=== PATIENT | female | born 2005 | race Caucasian/White ===

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

== ENCOUNTER 2025-09-05 12:24 | Outpatient (CLI) | payer OTHER, SELFPAY ==
[2025-09-05 16:28] LABS: Coronavirus 19, PCR Not Detected (NotDetected); Influenza A, PCR Not Detected (NotDetected); Influenza B, PCR Not Detected (NotDetected)
--- OUTSIDE RECORDS SUMMARY | 2025-09-09 12:29 | XMS_ITS | Patient Health Record ---
Author Organization [facility] [place] [facility] Address [address] [address] [place] [address] Support Name Relationship Address Phone Anay Jacobs Guarantor Unknown [phone] Reason For Referral No Information Plan Of Treatment No Information Medical (General) History Surgical History Surgery Date(Month/Year) Eye Surgery; 11/25/2009
--- OUTSIDE RECORDS SUMMARY | 2025-09-09 12:29 | XMS_ITS | Patient Health Record ---
[facility] [address] [place] [id number] Care Team Providers Care Investigator Utility Bill Complaints Name Role Phone Paulina To Primary Care Provider [phone] Allergies No Known Allergies Reason For Referral No Information Medications Medication SIG (Take, Route, Frequency, Duration) Notes Start Date End Date Status Sulfacetamide Sodium 10 % 1 drop into af fected eye Ophthalmic every 6 hrs 01/19/2024 Active Sulfamethoxazole-Trimethop rim 800-160 MG as directed orally every 12 hours; Duration: 7 day(s) 02/08/2023 Not-Taking Immunizations Vaccine Route Administration Date Status Comme nts Tetanus Tdap-Adacel (over 7yrs) IM Intramuscular 09/14/2016 Administered Menactra IM Intramuscular 09/14/2016 Administered Fluzone Quad (6months&older) IM Intramuscular 09/14/2016 Administered Fluzone Quad (6months&older) IM Intramuscular 11/16/2017 Administered Fluzone Quad (6months&older) IM Intramuscular 08/19/2018 Administered Fluzone Quad (6months&older) IM Intramuscular 09/14/2019 Administered COVID 19 Pfizer Unknown 05/02/2021 Administered COVID 19 Pfizer Unknown 05/23/2021 Administered Problems Problem Type SNOMED Code ICD Code Onset Dates Problem Status W/U Status Risk Notes Problem Strabismus (38775741) Strabismus NOS (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 confirmed 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
== END 2025-09-05 23:59 ==
LOC: LAB.DROPOF 09-09 12:27
PROVIDERS: PCP Family Medicine; Visit Provider Nurse Practitioner
DX: J06.9 Acute upper respiratory infection, unspecified (principal)
CPT/HCPCS: 87631